=== PATIENT | male | born 1965 | race Two or more races ===

== ENCOUNTER 2017-02-09 04:54 | Emergency (ER) | payer SELFPAY ==
[~2017-02-09] VITALS: Ht 175.3 cm; Wt 83.5 kg
[~2017-02-09 04:54] MED LIST: ALPR0.254 PO; ASPI-465 PO; ATEN-51 PO; ATOR40TA68 PO; CHOL100062 PO; CLOP75TA27 PO; HYDR-3025 PO; NIT4 SL; PANT40TA4 PO; SERT50TA PO; SUCR1TAB PO
[2017-02-09 05:05] VITALS: Ht 175.3 cm; Wt 83.5 kg
== END 2017-02-09 06:37 | disposition left against medical advice (07) ==
LOC: FTE 04:54
DX: Z53.21 Procedure and treatment not carried out due to patient leaving prior to being seen by health care provider (principal)

== ENCOUNTER 2017-03-29 04:08 | Emergency (ER) | payer BC ==
[~2017-03-29] VITALS: Ht 175.3 cm; Wt 82.0 kg
[2017-03-29 04:15] VITALS: Ht 175.3 cm; Wt 82.0 kg
--- NOTE | 2017-03-29 04:58 | ERD ---
ER Documentation Chief Complaint Chief Complaint chest congestion w/throat pain,sinus congestion, & sweating HPI 51-year-old male presents here in emergency department for complaints of chest congestion and throat pain runny nose nasal congestion for 1 week now. Patient feels congestion in the nose, feels postnasal drip, and is having dryness of the throat postnasal drip, causing him to cough. Patient has been coughing and unable to cough up phlegm. Patient does not have any shortness of breath or wheezing. Patient states that he has been coughing a lot the it has been causing him some chest discomfort, throbbing pain, as was upon coughing. Patient denies any dizziness. Patient is not dizzy on exertion or dizzy lying down. ROS All systems reviewed and are negative except as per history of present illness. Medications Home Meds Active Scripts Sucralfate (Carafate) 1 G Tablet, 1 GM PO Q6, #30 TAB Prov:CHACHO VILLATOROFanny DO 06/14/15 Reported Medications Atorvastatin* (Atorvastatin*) 40 Mg Tablet, PO QHS, #30 TAB 06/13/15 Pantoprazole* (Pantoprazole*) 40 Mg Tablet.dr, 40 MG PO DAILY, TAB 06/13/15 Cholecalciferol* (Vitamin D3*) 1,000 Unit Tablet, 1000 UNIT PO DAILY, TAB 06/13/15 Sertraline Hcl* (Zoloft*) 50 Mg Tablet, 50 MG PO DAILY, #30 TAB 06/13/15 Nitroglycerin* (Nitrostat*) 0.4 Mg Tab.subl, 0.4 MG SL Q5MIN Y for CHEST PAIN, BOTTLE 04/10/15 Clopidogrel Bisulfate (Clopidogrel) 75 Mg Tablet, 75 MG PO DAILY, TAB 04/10/15 Hydrocodone Bit-Acetaminophen* (Vicodin* ES) 1 Each Tablet, 1 EACH PO PRN 02/10/13 Atenolol* (Atenolol*) 25 Mg Tablet, 25 MG PO DAILY 02/10/13 Aspirin (Adult Low Dose Aspirin) 81 Mg Tablet.dr, 81 MG PO DAILY 02/10/13 Alprazolam (Xanax) 0.25 Mg Tab, 0.25 MG PO PRN 02/10/13 Allergies Allergies: Coded Allergies: No Known Allergy (Verified , 02/09/17) PMhx/Soc Medical and Surgical Hx: pt denies Medical Hx, pt denies Surgical Hx History of Surgery: Yes (APPENDECTOMY, CARDIAC STENTS) Anesthesia Reaction: No Hx Neurological Disorder: No Hx Respiratory Disorders: No Hx Cardiac Disorders: Yes (OR 07&09, HTN, DYSLIPIDEMIA) Hx Psychiatric Problems: No Hx Miscellaneous Medical Probl: No Hx Alcohol Use: No Hx Substance Use: No Hx Tobacco Use: Yes Smoking Status: Current some day smoker FmHx Family History: No coronary disease, No diabetes, No other Physical Exam Vitals Vital Signs Date Time Temp Pulse Resp B/P Pulse Ox O2 Delivery O2 Flow Rate FiO2 03/29/17 04:15 95.6 64 22 137/76 98 Physical Exam GENERAL: The patient is well developed and appropriate for usual state of health, in no apparent distress. CHEST: Clear to auscultation bilaterally. There are no rales, wheezes or rhonchi. HEART: Regular rate and rhythm. No murmurs, clicks, rubs or gallops. No S3 or S4. ABDOMEN: Soft, nontender and nondistended. Good bowel sounds. No rebound or guarding. No gross peritonitis. No gross organomegaly or masses. No Pool sign or McBurney point tenderness. BACK: No midline or flank tenderness. EXTREMITIES: Equal pulses bilaterally. There is no peripheral clubbing, cyanosis or edema. No focal swelling or erythema. Full range of motion. Grossly neurovascularly intact. NEURO: Alert and oriented. Cranial nerves 2-12 intact. Motor strength in all 4 extremities with 5/5 strength. Sensation grossly intact. Normal speech and gait. SKIN: There is no apparent rash or petechia. The skin is warm and dry. HEMATOLOGIC AND LYMPHATIC: There is no evidence of excessive bruising or lymphedema. No gross cervical, axillary, or inguinal lymphadenopathy. Results 24 hrs EKG was done, read by me and is sinus bradycardia at 58 bpm, anteroseptal infarct, age undetermined, normal axis, there is no new ST changes or changes in the EKG that indicates any cardiac emergencies at this time. His EKG was compared to previous EKG done 02/09/2017, no acute changes. Patient's EKG was also reviewed by Dr. Sarabia. Impression: no acute findings on EKG PROCEDURE: CHEST - 1 VIEW CLINICAL INDICATION: 51-year-old male with cough. TECHNIQUE: A single frontal AP upright portable view of the chest was performed. The images were reviewed on a PACS workstation. COMPARISON: Chest x-ray June 13, 2015. FINDINGS: The cardiomediastinal silhouette has a normal appearance. There is no evidence for an infiltrate. There is no evidence for congestive heart failure. There is no evidence for pneumothorax. The osseous structures are intact. IMPRESSION: No evidence for active cardiopulmonary disease. .Jasen White MD, MD Date Time Electronically viewed and signed by .Jasen White MD, MD on 03/29/2017 05:36 .M/ CC: YARED TRUJILLO [employer] TRAINING DIRECTOR Procedures/MDM Medical Decision Making: Patient symptoms are most likely consistent with upper respiratory tract infection, which viral in origin. There is low suspicion for Pneumonia at this time since patients lungs sounds are clear, patient O2 saturation is normal and patient doesnt show any respiratory distress. Patients chest xray doesnt show infiltrates or any other cardiopulmonary emergencies at this time. There is low suspicion for other cardiopulmonary emergencies at this time such as CHF, Pulmonary Embolism, Pneumothorax, Aortic Aneurysm or any other cardiopulmonary emergencies at this time. There is low suspicion for sepsis. Patient appears well and is hemodynamically stable. Disposition: Home. Condition: Stable Prescriptions: Guaifenasin with codeine, Zyrtec, ibuprofen, Flonase Instructions: Patient is advised to take medications as prescribed. Patient is advised to rest. Patient advised to increase fluid intake, do humidifier at home and if possible, do salt water gargles. Patient is advised that if symptoms are worse, shortness of breath, uncontrolled fever, stridor, vomiting, worst signs and symptoms to return to emergency department immediately. Otherwise, patient is advised to follow up with primary doctor in 5-7 days. Disclaimer: Inadvertent spelling and grammatical errors are likely due to EHR/ dictation software use and do not reflect on the overall quality of patient care. Also, please note that the electronic time recorded on this note does not necessarily reflect the actual time of the patient encounter. Departure Diagnosis: Primary Impression: URI (upper respiratory infection) URI type: unspecified viral URI Qualified Code: J06.9 - Viral upper respiratory tract infection Condition: Stable Patient Instructions: Uri, Viral, No Abx (Adult) Additional Instructions: Patient is advised to take medications as prescribed. Patient is advised to rest. Patient advised to increase fluid intake, do humidifier at home and if possible, do salt water gargles. Patient is advised that if symptoms are worse, shortness of breath, uncontrolled fever, stridor, vomiting, worst signs and symptoms to return to emergency department immediately. Otherwise, patient is advised to follow up with primary doctor in 5-7 days. YARED TRUJILLO NP Mar 29, 2017 04:57
--- NOTE | 2017-03-29 05:36 | RADRPT ---
PROCEDURE: CHEST - 1 VIEW CLINICAL INDICATION: 51-year-old male with cough. TECHNIQUE: A single frontal AP upright portable view of the chest was performed. The images were reviewed on a PACS workstation. COMPARISON: Chest x-ray June 13, 2015. FINDINGS: The cardiomediastinal silhouette has a normal appearance. There is no evidence for an infiltrate. There is no evidence for congestive heart failure. There is no evidence for pneumothorax. The osseou s structures are intact. IMPRESSION: No evidence for active cardiopulmonary disease. .Jasen White MD, MD Date Time Electronically viewed and signed by .Jasen White MD, on 03/29/2017 05:36 .M/
[2017-03-29] MEDS ORDERED: GUAI473L22 PO (05:41)
[2017-03-29] MEDS ORDERED: ALBU8.5H3 INH (05:41)
[2017-03-29] MEDS ORDERED: IBUP400T22 PO (05:41)
[2017-03-29] MEDS ORDERED: CETI10CA PO (05:41)
[2017-03-29] MEDS ORDERED: FLUT9.9S NASAL (05:41)
[2017-03-29 06:05] VITALS: BP 114/71; PULSE 59; RESP 19; TEMP 97.9
== END 2017-03-29 06:05 | disposition home or self-care (01) ==
LOC: FTE 04:08
DX: J06.9 Acute upper respiratory infection, unspecified (principal); I10 Essential (primary) hypertension; F17.210 Nicotine dependence, cigarettes, uncomplicated; Z79.82 Long term (current) use of aspirin; Z98.61 Coronary angioplasty status
CPT/HCPCS: 71010; 93005; Z7502

== ENCOUNTER 2017-11-25 10:38 | Emergency (ER) | END 2017-11-25 12:38 | disposition left against medical advice (07) ==